=== PATIENT | female | born 1950 | race African-American/Black ===

== ENCOUNTER 2016-11-06 14:44 | Emergency (ER) | payer MEDICARE ==
[2013-12-06 18:33] VITALS: BMI 20.9
[~2016-11-06 14:44] MED LIST: GABAPENTIN100 MG PO; HYDROCODONE-APA1 TAB PO; LISINOPRIL5 MG PO; PROTONIX40 MG PO; REMERON15 MG PO; ZANTAC300 MG PO
[2016-11-06 16:04] LABS: BASOPHILS 0.3 % (0-2); EOSINOPHILS 0.2 % (0-7); HEMOGLOBIN 15.4 g/dL (12-16); IMMATURE GRANULOCYTES 0.8 % (0-5); LYMPHOCYTES 20.4 % (15-50); MCH 32.4 pg (26.0-34.0); MCHC 33.5 g/dL (31.0-37.0); MCV 96.6 fL (80.0-100.0); MEAN PLATELET VOLUME 10.5 fL (7.4-10.4); MONOCYTES 6.3 % (2-11); PLATELET COUNT 239 10x3/uL (130-400); RBC 4.76 10x6/uL (4.00-5.40); RDW 13.2 % (11.5-14.5); WBC 6.2 10x3/uL (4.8-10.8)
[2016-11-06 16:14] LABS: APPEARANCE CLEAR (CLEAR); BILIRUBIN NEGATIVE (NEGATIVE); COLOR YELLOW (YELLOW); GLUCOSE NEGATIVE (NEGATIVE); KETONE NEGATIVE (NEGATIVE); LEUKOCYTE ESTERASE NEGATIVE (NEGATIVE); NITRITE NEGATIVE (NEGATIVE); PROTEIN TRACE mg/dL (NEGATIVE); SPECIFIC GRAVITY 1.025 (1.005-1.020); UROBILINOGEN NORMAL (NORMAL)
[2016-11-06 16:15] LABS: BACTERIA MODERATE /hpf (NONE SEEN); MUCUS <1+ /lpf (NONE SEEN); RED CELLS - URINE 0-5 /hpf (0-5)
[2016-11-06 16:57] LABS: ALBUMIN 4.6 g/dL (3.4-5.0); ANION GAP 20.5 mmol/L (8-16); BILIRUBIN - TOTAL 0.49 mg/dL (0.2-1.3); CALCIUM 10.3 mg/dL (8.5-10.1); CARBON DIOXIDE 23.5 mmol/L (21.0-32.0); CREATININE - SERUM 1.3 mg/dL (0.6-1.3); PROTEIN - SERUM 9.3 g/dL (6.4-8.2)
[2016-11-06 20:05] LABS: AMYLASE - SERUM 231 U/L (25-115); LIPASE 342 U/L (73-393)
== END 2016-11-06 20:30 | disposition home or self-care (01) ==
LOC: D.ER 14:44
PROVIDERS: Emergency Medicine Emergency Medical Services; Family Medicine
DX: R10.13 Epigastric pain (principal); F17.200 Nicotine dependence, unspecified, uncomplicated; C53.9 Malignant neoplasm of cervix uteri, unspecified; I10 Essential (primary) hypertension

== ENCOUNTER → 2018-08-20 23:41 | Outpatient (CLI) | payer MEDICARE ==
[2013-12-06 18:33] VITALS: BMI 20.9
== END | disposition home or self-care (01) ==
LOC: D.MAMMO 14:45
PROVIDERS: ATTEND Nurse Practitioner Family
DX: Z12.31 Encounter for screening mammogram for malignant neoplasm of breast (principal)